=== PATIENT | male | born 1945 | race Caucasian/White ===

== ENCOUNTER 2018-09-10 06:35 | Day surgery (SDC) | payer MEDICARE, BC ==
[2018-09-10] MEDS ORDERED: Propofol 200 MG/20 ML SDV IV ONE (06:36)
[2018-09-10] MEDS ORDERED: Lactated Ringers 1,000 ML IV ONE (06:36)
[2018-09-10] MEDS ORDERED: Glycopyrrolate 0.2 MG/ML 5 ML MDV IV ONE (06:36)
[2018-09-10] MEDS ORDERED: hydrALAZINE 20 MG/ML SDV IV ONE (06:36)
[2018-09-10] MEDS ORDERED: Succinylcholine 200 MG/10 ML MDV IV ONE (06:36)
[2018-09-10] MEDS ORDERED: Midazolam 1 MG/ML 2 ML SDV IV ONE (06:36)
[2018-09-10] MEDS ORDERED: Rocuronium 100 MG/10 ML MDV IV ONE (06:36)
[2018-09-10] MEDS ORDERED: fentaNYL 100 MCG/2 ML SDV IV ONE ×2 (06:36)
[2018-09-10] MEDS ORDERED: Neostigmine Methylsulfate 10 MG/10 ML MDV IVPUSH ONE (06:36)
[2018-09-10] MEDS ORDERED: Ondansetron 4 MG/2 ML SDV IVPUSH ONE (06:36)
[2018-09-10] MEDS: Lactated Ringers 1,000 ML IV SCH ×2 (07:55→09:50)
--- NOTE | 2018-09-10 08:13 | PCM.PN ---
- General Info Date of Service: 09/10/18 - Review of Systems Systems Review Comment:: 73 y/o male with post surgical umbilical hernia here for hernia repair. The patient's previous H and P is reviewed and no significant changes are noted. The site of the hernia is confirmed with the patient and marked. The proposed procedure is again reviewed with the patient and he agrees to proceed accepting risks. - Patient Data Vitals - Most Recent: Last Vital Signs Temp 97.9 F 09/10/18 07:25 Pulse 52 L 09/10/18 07:25 Resp 16 09/10/18 07:25 BP 149/99 H 09/10/18 07:25 Pulse Ox 94 L 09/10/18 07:25 Weight - Most Recent: 265 lb Med Orders - Current: Current Medications Cefazolin Sodium 3 gm/ Sodium (Chloride) 100 mls @ 200 mls/hr IV ONETIME ONE Stop: 09/10/18 08:29 Last Admin: 09/10/18 08:02 Dose: 200 mls/hr Lactated Ringer's (Ringers, Lactated) 1,000 mls @ 125 mls/hr IV ASDIRECTED REPLACED BY [facility] Last Admin: 09/10/18 07:55 Dose: 125 mls/hr - Problem List Review Problem List Initiated/Reviewed/Updated: Yes - My Orders Last 24 Hours: My Active Orders 09/09/18 Dinner Nothing Per Oral Diet [DIET] 09/10/18 06:45 Patient Status [ADT] Routine Patient to Empty Bladder [RC] ASDIRECTED RT Incentive Spirometry [RC] ASDIRECTED Verify Patient Consent Obtain [RC] ASDIRECTED Lactated Ringers [Ringers, Lactated] 1,000 ml IV ASDIRECTED Peripheral IV Insertion Adult [OM.PC] Routine Sequential Compression Device [OM.PC] Routine 09/10/18 08:00 ceFAZolin [Ancef] 3 gm Sodium Chloride 0.9% [Normal Saline] 100 ml IV ONETIME - Assessment Assessment:: Umbilical incisional hernia - Plan Plan:: Laparoscopic repair of hernia
[2018-09-10] MEDS ORDERED: Bupivacaine 0.5%/EPINEPHrine 1:200,000 50 ML MDV ONE (08:27)
[2018-09-10] MEDS ORDERED: ceFAZolin 1 GM Vial ONE (08:35)
--- NOTE | 2018-09-10 10:02 | PCM.OPNOTE ---
- General Post-Op/Procedure Note Date of Surgery/Procedure: 09/10/18 Operative Procedure(s): Laparoscopic Repair of Ventral Incisional Hernia Findings: Small periumbilical fascial defect at site of previous laparoscopic cholecystectomy Pre Op Diagnosis: Ventral Incisional Hernia Post-Op Diagnosis: Same Anesthesia Technique: General ET Tube Primary Surgeon: Amol Cody Pathology: none Output, Urine Amount: 0 EBL in mLs: 20 Complications: None Condition: Good
[2018-09-10] MEDS ORDERED: Acetaminophen/HYDROcodone 325-5 MG Tab PO PRN (10:03)
--- NOTE | 2018-09-10 13:00 | OR ---
DATE OF OPERATION: 09/10/2018 SURGEON: Amol Cody MD PREOPERATIVE DIAGNOSIS: Ventral incisional hernia. POSTOPERATIVE DIAGNOSIS: Ventral incisional hernia. OPERATION PERFORMED: Laparoscopic repair of ventral incisional hernia. INDICATIONS FOR SURGERY: This 73-year-old male has developed a painful bulge at the level of his umbilicus. This has developed after the patient underwent a laparoscopic cholecystectomy. He noticed this after lifting a heavy object. He comes for laparoscopic repair of this hernia. FINDINGS: Just above the level of the umbilicus, there is a small fascial defect with some fatty tissue in the defect. The surrounding fascia all appears solid without any other defects in this area. PROCEDURE IN DETAIL: The patient was taken to the operating room. He was given general endotracheal anesthesia and the abdomen was sterilely prepped and draped. A right upper quadrant incision was made and through this the peritoneal cavity was accessed under direct visualization using a Visiport catheter. Intra-abdominal inspection was carried out. The location of the hernia was identified. Two additional 5 mm trocars were placed on the right abdomen laterally. All trocar sites were infiltrated with Marcaine prior to incision. Under direct visualization, fatty tissue adherent to the undersurface of the fascia in the periumbilical region was carefully cleared to provide a good fascial surface for the mesh. Blunt and cautery dissection was used to clear a space. A circular 4-1/2-inch piece of [employer] mesh was then selected, and after soaking in Ancef and saline solution, a localizing stitch was placed in the mid point of this mesh. The mesh was inserted intra-abdominally and the localizing stitch was brought out through the skin at the level of the umbilicus to center the mesh on the abdominal wall at the location of the hernia. Absorbable tacks were then placed securing the mesh to the undersurface of the abdominal wall fascia. An outer row of closely placed tacks were placed and an inner row of more widely spaced tacks were used securing solidly the mesh to the undersurface of the fascia and creating a solid barrier to repair the hernia. No sign of complication was noted. The fascia of the largest trocar site was closed with a 0 Vicryl using a port closure device. The pneumoperitoneum was evacuated and trocars were removed under direct visualization. Wounds were irrigated and then the skin incisions were approximated with interrupted 4-0 Vicryl in a subcuticular stitch. Steri-Strips and benzoin were applied. Antibiotic ointment and sterile dressings were placed. The patient was awakened, extubated, and taken from the operating room in satisfactory condition. ESTIMATED BLOOD LOSS: 20 mL. COMPLICATIONS: None. PROGNOSIS: Good. /[id number] EMERITA/DONTA
== END 2018-09-10 12:10 | disposition home or self-care (01) ==
LOC: FB.SDS 06:35
PROVIDERS: ATTEND Surgery
DX: K43.2 Incisional hernia without obstruction or gangrene (principal); E66.9 Obesity, unspecified; Z68.35 Body mass index [BMI] 35.0-35.9, adult
CPT/HCPCS: 00750; 49656; A9270; C1781; J0330; J0360; J0690; J2250; J2405; J2704; J2710; J3010; J3490; J7030; J7120